=== PATIENT | female | born 1950 | race Caucasian/White ===

== ENCOUNTER 2021-11-04 09:08 | Emergency (ER) | payer MEDICARE ==
[~2021-11-04] VITALS: Ht 165.1 cm; Wt 100.0 kg
[2021-11-04 09:11] VITALS: BP 195/69
[2021-11-04] MEDS ORDERED: DOXY100C43 PO (09:39)
[2021-11-04] MEDS ORDERED: cephalexin 250mg capsule PO ONE (09:40)
== END 2021-11-04 10:07 | disposition home or self-care (01) ==
LOC: ER 09:08
DX: H00.034 Abscess of left upper eyelid (principal)
CPT/HCPCS: 99283